=== PATIENT | female | born 1985 | race Two or more races ===

== ENCOUNTER 2016-07-21 08:49 | Emergency (ER) | payer OTHER ==
[~2016-07-21] VITALS: Ht 170.2 cm; Wt 67.0 kg
[2016-07-21 08:51] VITALS: BP 126/74; PULSE 89; RESP 16; O2SAT 100
--- NOTE | 2016-07-21 08:56 | ED.REPORT ---
HPI-Abd Pain F Under 41 Date of Service July 21, 2016 ED Provider: Nursing Notes Stated Complaint: ABDOMINAL PAIN Chief Complaint: Female Abdominal Pain Allergies: Coded Allergies: No Known Allergies (Verified Allergy, Unknown, 01/04/14) No Active Prescriptions or Reported Meds General Time Seen by MD: 08:56 Past Medical History Past Medical History Past Surgical History Reports: Appendectomy, Family History Noncontributory Smoking History Never Smoker Social History Alcohol Use: Denies alcohol use Drug Use: Denies drug use Ambulatory Status Independent Physical Exam Initial Vital Signs Vital Signs (First) Date Time Temp Pulse Resp B/P Pulse Ox O2 Delivery O2 Flow Rate FiO2 07/21/16 08:51 36.6 89 16 126/74 100 Discharge & Departure Referrals: Markus Nieto MD (PCP) Maxx Lao MD July 21, 2016 08:56
[2016-07-21] MEDS ORDERED: 0.9% Sodium Chloride 1,000 ML IV ONE (09:02)
[2016-07-21] MEDS ORDERED: Ondansetron 2 mg/mL 2 mL Inj IVPUSH ONE (09:05)
[2016-07-21] MEDS ORDERED: Pantoprazole 4 mg/mL 10 mL Inj IVPUSH ONE (09:05)
[2016-07-21 09:33] LABS: EOSINOPHILS % (AUTO) 2.2 % (0-5); Mean Corpuscular Hemoglobin 29.5 pg (27.0-35.0); Mean Corpuscular Volume 86.3 fL (81-100); NEUTROPHILS % (AUTO) 53.9 % (40-74); Platelet Count 219 bil/L (150-400)
[2016-07-21 09:56] LABS: Magnesium 1.9 mg/dL (1.6-2.6)
--- NOTE | 2016-07-21 10:40 | ED.REPORT ---
HPI-Abd Pain F Under 40 Date of Service July 21, 2016 ED Provider: Maxx Lao MD Patient is a 31-year-old Albanian-speaking female with past medical history of depression and anxiety presents to [facility] Emergency Department complaining of severe abdominal pain for 1 week. Pain is located in the epigastric area and associated with nausea, decreased appetite, bloating, heartburn, and weakness. She states she has lost 2 pounds during last week. She denies chills, fever, vomiting, diarrhea, recent travels or sick contacts. Patient reports she has been seen for diffuse abdominal pain previously and had negative workup so far. She also states she is under lots of emotional stress and has been depressed for a while. She tried venlafaxine and sertraline for depression but stopped using it due to side effects. Nursing Notes Stated Complaint: ABDOMINAL PAIN Chief Complaint: Female Abdominal Pain Nursing Notes Reviewed: Yes Allergies: Coded Allergies: No Known Allergies (Verified Allergy, Unknown, 01/04/14) No Active Prescriptions or Reported Meds General Time Seen by MD: 09:10 Chief Complaint Abdominal pain (Epigastric area) Hx Obtained From: Patient Arrived By: Walk-in Onset Occurred: 1 week ago Context of Onset: Other (Stress) Symptom Duration: Since onset Progression since Onset: Intermittent Location: : Epigastric Quality: Burning, Cramping Radiation: : Does not radiate Severity: Current: Moderate Associated with: Reports: Anorexia, Nausea Recent Healthcare: Recent doctor visit (LEANA Zamarripa, seen for generalized obdominal pain ) Past Medical History Past Medical History Notes: Depression Headache Past Medical History Past Surgical History Reports: Appendectomy, Family History Noncontributory Smoking History Never Smoker Social History Alcohol Use: Denies alcohol use Drug Use: Denies drug use Other Social History: Ambulatory Status Independent Review of Systems Constitutional: Reports: Fatigue, Malaise, Recent wt loss, Weakness - generalized Respiratory: Denies: Dyspnea on exertion, Hemoptysis, Pleuritic pain, Shortness of breath, Wheezing Cardiovascular: Denies: Chest pain, Edema, Palpitations, Syncope GI: Reports: Abdominal pain, Anorexia, Belching, Nausea, Denies: Bloody/tarry stool, Constipation, Diarrhea, Dysphagia, Hematemesis, Hematochezia, Melena, Vomiting Female: Denies: Dysuria, Flank pain, Pelvic pain, , Vaginal discharge Musculoskeletal: Denies: Back pain, Extremity pain, Extremity swelling, Joint pain, Joint swelling, Lumbar pain, Neck pain, Thoracic pain Physical Exam Initial Vital Signs Vital Signs (First) Date Time Temp Pulse Resp B/P Pulse Ox O2 Delivery O2 Flow Rate FiO2 07/21/16 08:51 36.6 89 16 126/74 100 07/21/16 12:48 Room Air Initial VS: Reviewed, Vital signs normal General/Constitutional: Awake, Alert, No acute distress, Well appearing, Well developed, Well nourished, Cooperative Behavior: Positive: Tearful (worried about her health) Respiratory / Chest: Atraumatic, Breath sounds NL, No respiratory distress, No wheezing, No chest tenderness Cardiovascular: Heart rate NL, No murmurs, Cap refill not delayed, Pulses = bilaterally Abdomen: Atraumatic, Soft, No guarding, No rebound, BS normoactive Tenderness/Guarding/Rebound: Positive: Tender epigastric Back: Atraumatic, Non-tender, No muscle spasm, No CVA tenderness Head / Eyes: Atraumatic, Normocephalic, PERRL, EOMI Mouth: Positive: Mucous membranes dry Skin: No rash, Warm, Dry, Intact, No swelling Interpretation & Diagnostics Lab Results Interpretation Result Diagram: 07/21/16 0930 07/21/16 0930 Test 07/21/16 09:30 White Blood Count 4.2th/mm3 (3.8-10.1) Red Blood Count 4.74mil/mm3 (3.90-5.20) Hemoglobin 14.0g/dL (12.0-15.6) Hematocrit 40.9% (35.0-46.0) Mean Corpuscular Volume 86.3fL (81-100) Mean Corpuscular Hemoglobin 29.5pg (27.0-35.0) Mean Corpuscular Hemoglobin Concent 34.2% (32.0-37.0) Red Cell Distribution Width 12.6% (12.3-15.4) Platelet Count 219bil/L (150-400) Neutrophils (%) (Auto) 53.9% (40-74) Lymphocytes (%) (Auto) 35.9% (14-46) Monocytes (%) (Auto) 7.0% (4-12) Eosinophils (%) (Auto) 2.2% (0-5) Basophils (%) (Auto) 1.0% (0-3) Sodium Level 137mEq/L (134-144) Potassium Level 3.9mEq/L (3.5-5.2) Chloride Level 97mEq/L (97-108) Carbon Dioxide Level 22mmol/L (18-29) Blood Urea Nitrogen 5mg/dL (6-20) Creatinine 0.67mg/dL (0.57-1.00) Estimat Glomerular Filtration Rate 148mL/min (>59) Glucose Level 117mg/dL (60-99) Calcium Level 10.5mg/dL (8.5-10.1) Magnesium Level 1.9mg/dL (1.6-2.6) Total Bilirubin 0.7mg/dL (0.0-1.2) Aspartate Amino Transf (AST/SGOT) 20U/L (0-50) Alanine Aminotransferase (ALT/SGPT) 10U/L (0-32) Alkaline Phosphatase 44U/L (25-150) Total Protein 8.4g/dL (6.4-8.4) Albumin 4.9g/dL (3.4-5.0) Lipase 22U/L (13-60) Lab values outside NL range: no clinical significance. Urinalysis Interpretation Urinalys reviewed and NL Re-Eval/Medical Decision Med Decision/Clinical Course In summary, this is a 31-year-old Albanian speaking female with history of depression and anxiety who comes in with diffuse epigastric pain. Our differential diagnoses includes viral gastroenteritis, peptic ulcer disease, cholecystitis, pancreotitis, etc. CBC, CMP, lipase and UA are unremarkable. Patient is not . Patient is hemodynamically stable. Patient has been seen multiple times by primary care providers for abdominal pain, headaches, anxiety, depression, weakness. All wok up has been negative so far. Patient does report a lot of stress at home and anxiety related to her health. She has three kids and worries about them a lot. She has been on at least two different antidepressants that she stooped taking due to side effects. At this point it is felt safe to discharge patient home. She is instructed to follow up with her PCP, within 1-2 weeks. Counseled Regarding: Diagnosis, Lab results, Need for follow-up, When/why to return to ED Discharge & Departure Shift Change Sign-Out Response to Therapy: Improved Primary Impression: Epigastric abdominal pain of unknown etiology Disposition: Home Discharge Condition All VS Reviewed: Yes Condition: Stable Patient Instructions: Gastritis (ED) Additional Instructions: Thank you for seeking care at the emergency department today. While it is difficult sometimes to establish a definitive diagnosis in the emergency room, our main goal is to exclude life-threatening conditions. Your evaluation was reassuring! We believe you might be experiencing viral gastritis or GERD (gastroesophageal reflux disease). We would recommend you to continue taking omeprazole daily. Avoid drinks and foods that irritate your stomach. Follow up with your PCP if symptoms do not improve. If you would like to transfer care to [facility], you can call at [phone] to make an appointment, address [address] [place] [address]. Please return to emergency department immediately if your symptoms worsen. Thank you for letting us partake in your care today. Referrals: Markus Nieto MD (PCP) EDSupervising Provider for APC: Maxx Lao MD Attending Statment The patient was seen and examined together with Dr. Howell on 07/21/16 and I agree with the history, exam and plan as outlined in the note above. copies to: Markus Nieto MDYeny Nolberto ÁLVAREZ July 21, 2016 10:40 Maxx Lao MD July 24, 2016 16:10
[2016-07-21 12:48] VITALS: BP 112/67; PULSE 67; RESP 18; O2SAT 99
== END 2016-07-21 12:49 | disposition home or self-care (01) ==
LOC: SED 08:49
DX: R10.13 Epigastric pain (principal); R11.0 Nausea; R12 Heartburn; R53.83 Other fatigue; R53.1 Weakness; F32.9 Major depressive disorder, single episode, unspecified
CPT/HCPCS: 36415; 80053; 81002; 81025; 83690; 83735; 85025; 96361; 96374; 96375; 99285; J2405; J7030

== ENCOUNTER 2016-09-11 14:08 | Day surgery (SDC) | payer OTHER ==
[~2016-09-11] VITALS: Ht 167.6 cm; Wt 65.0 kg
[~2016-09-11 14:08] MED LIST: 0.9% Sodium Chloride 1,000 ML IV PRN; FLUN25SP NS; Sodium Chloride LOK Flush 10 mL Syringe IV PRN; fentaNYL-PF 50 mCg/mL 2 mL Inj IVPUSH PRN
[2016-09-11 14:50] VITALS: BP 117/69; PULSE 97; RESP 16; O2SAT 100
--- NOTE | 2016-09-11 16:37 | PCM.ENDEGD ---
EGD Date of Service: Sep 11, 2016 Physician Magan Garcia MD Pre Procedure Diagnosis: Abdominal pain Post Procedure Dx & Findings: Gastritis Procedure Esophagogastroduodenoscopy PROCEDURE IN DETAIL: After proper sedation, Olympus video endoscope was inserted into patient's mouth and esophagus was successfully intubated. Scope introduced esophagus. Esophagus showed normal shiny whitish mucosa consistent with squamous cell component. Z line was intact at 40 cm from the incisors. Scope further advanced to the stomach. The mucosa of the body and the antrum shows some atrophy of the mucosa.. Biopsies obtained to rule out atrophic gastritis. Cardia fundus body antrum pylorus were all visualized. Retroflexion was done. Stomach was easily inflated and deflatable using air. Scope further advanced to the distal duodenum. Duodenum revealed normal villous structures with normal appearing folds without any mass ulcer erosion. 5 biopsies obtained. Impression Atrophic gastropathy Recommendation Await biopsies Presedation Assessment Risks and Benefits Informed consent was obtained from the patient after all risks and benefits including but not limited to drug reaction, infection, pain, bleeding, perforation, as well as alternatives were discussed. Patient monitoring Continuous pulse oximetry, cardiac monitoring, blood pressure monitoring, IV access, and oxygen at 2L per nasal cannula. Periprocedural Fentanyl: Fentanyl 200mcg Incrementally Midazolam: Midazolam 9mg Incrementally Complications There were no periprocedural complications identified. Post Procedure Plan Post Procedure Recommendations 1. Restrict activities today. 2. Resume normal activities in the morning. 3. Resume medications. 4. GERD behavioral modification: - Avoid fatty, acidic, spicy, large meals - Do not lie down after meals - Do not eat or drink anything for at least 2 1/2 hours before going to bed at night - Discontinue tobacco and alcohol - Decrease or avoid caffeine - Avoid chocolate and mints - Decrease weight - Avoid aspirin and non steroidal anti-inflammatory agents (NSAID) such as Aleve, Advil, Mobic, Naproxen, Ibuprofen, etc 5. Add proton pump inhibitor. Take 30 minutes before 1st meal of the day. 6. Patient informed of normal post procedure side effects as bloating, drowsiness, blood streaking in the stool 7. If gastric biopsy reveal H.pylori, continue with appropriate treatment 8. If small bowel biopsy reveals celiac, continue with appropriate treatment 9. Please don't hesitate to call me with any questions Magan Garcia MD Sep 11, 2016 16:37
[2016-09-11 16:38] VITALS: BP 123/72; PULSE 88; RESP 16; O2SAT 100
--- NOTE | 2016-09-11 16:39 | PCM.ENDCOL ---
Colonoscopy Date of Service: Sep 11, 2016 Physician Magan Garcia MD Pre Procedure Diagnosis: Blood in the stools abdominal pain Post Procedure Dx & Findings: Hemorrhoids Procedure Colonoscopy PROCEDURE IN DETAIL: Prep adequate Withdrawal time 18 minutes After unremarkable rectal examination the Olympus video colonoscope was inserted patient's anal canal and was advanced to cecum. Landmarks were identified including the ileocecal valve and appendiceal orifice. Scope further vents the terminal ileum. Advanced 10 cm. Visualized terminal ileum showed normal villous structures without any ulcer mass erosions. Scope was withdrawn systematically. Visualized colonic mucosa showed healthy shiny mucosa with normal healthy-appearing vasculature. In the colon, polyp. They are both about 5 mm in size. These were removed using cold snare. In the sigmoid colon, there was another 5 mm completely using cold snare. In the rectum, there were 2 polyps. There were both 1 mm in size which was removed completely cold forceps. In the rectum retroflexion was done which showed hemorrhoids. Anal canal was inspected carefully on the way out and hemorrhoids noted. Impression Polyps 5 status post complete removal Hemorrhoids Recommendation Repeat colonoscopy 3 years Follow-up in the GI clinic with the physician's training and development assistant. Presedation Assessment Risks and Benefits Informed consent was obtained from the patient after all risks and benefits including but not limited to drug reaction, infection, pain, bleeding, perforation, as well as alternatives were discussed. Patient monitoring Continuous pulse oximetry, cardiac monitoring, blood pressure monitoring, IV access, and oxygen at 2L per nasal cannula. Complications There were no periprocedural complications identified. Post Procedure Plan Post Procedure Recommendations 1. Restrict activities today. 2. Resume normal activities in the morning. 3. Resume medications. 4. Patient informed of normal post procedure side effects as bloating, drowsiness, blood streaking in the stool. 5. average risk CRCS. If colon polyps come back as: -Hyperplastic- can repeat colonoscopy in 10 years -Tubular adenoma- repeat colonoscopy in 5 years -Tubulovillous/villous adenoma- repeat colonoscopy in 3 years -If any dysplasia- return to clinic as soon as possible 6. Please don't hesitate to call me with any questions. Magan Garcia MD Sep 11, 2016 16:39
[2016-09-11 16:48] VITALS: BP 128/69; PULSE 86; RESP 16; O2SAT 100
[2016-09-11 16:58] VITALS: BP_SYST 116; BP_SYST 166; BP_DIAS 68; PULSE 88; RESP 16; O2SAT 100
--- NOTE | 2016-09-13 16:53 | PATH ---
SURGICAL PATHOLOGY Attending Physician:Magan Garcia M.D. CASE STATUS: Signed Out PATIENT NAME: EVELYNE MANN PID: [id number] : 1985 DATE COLLECTED:09/11/2016 00:00 SPECIMEN: 1: Duodenum, Biopsy 2: Gastric, Biopsy 3: Colon, Polyp 4: Colon, Polyp 5: Rectum, Biopsy CLINICAL HISTORY: EPIGASTRIC, ABDOMINAL PAIN 1). DUODENAL BIOPSY, RULE OUT CELIAC DISEASE 2). GASTRIC BIOPSY 3). DESCENDING COLON POLYPS X2 4). SIGMOID COLON POLYP 5). RECTAL POLYPS X2 FINAL DIAGNOSIS: 1.DUODENAL BIOPSY: NORMAL-APPEARING SMALL BOWEL MUCOSA. Normal delicate mucosal villi present. Negative for significant inflammation, dysplasia and malignancy. 2.GASTRIC BIOPSY: MUCOSAL HYPEREMIA WITHOUT ASSOCIATED SIGNIFICANT INFLAMMATION INVOLVING FUNDIC MUCOSA. Negative for evidence of Helicobacter on H&E stain. Negative for intestinal metaplasia. Negative for dysplasia and malignancy. 3.DESCENDING COLON POLYPS: HYPERPLASTIC POLYP INVOLVING ALL BIOPSY FRAGMENTS. 4.SIGMOID COLON POLYP: HYPERPLASTIC POLYP INVOLVING MULTIPLE BIOPSY FRAGMENTS. 5.RECTAL POLYP: POLYPOID-SHAPED FRAGMENT OF COLON MUCOSA WITH FOCAL PROMINENT LYMPHOID AGGREGATE. Negative for dysplasia and malignancy. ICD10 K63.5 GROSS DESCRIPTION: 1. Received in formalin, labeled with the patient's name and "duodenal biopsy" are three fragments of su soft tissue ranging from 0.1 x 0.1 x 0.1 cm to 0.3 x 0.2 x 0.2 cm. All fragments are totally submitted in cassette 1A. 2. Received in formalin, labeled with the patient's name and "gastric biopsy" are two fragments of su soft tissue ranging from 0.2 x 0.2 x 0.1 cm to 0.3 x 0.2 x 0.2 cm. All fragments are totally submitted in cassette 2A. 3. Received in formalin, labeled with the patient's name and "descending colon polyp" are multiple fragments of su soft tissue measuring 0.1 x 0.1 x 0.1 cm to 0.4 x 0.3 x 0.2 cm. The fragments are totally submitted in cassette 3A. 4.. Received in formalin, labeled with the patient's name and "sigmoid polyp" are multiple fragments of su soft tissue ranging from 0.2 x 0.1 x 0.1 cm to 0.3 x 0.2 x 0.2 cm. The fragments are totally submitted in cassette 4A. 5. Received in formalin, labeled with the patient's name and "rectal polyp" is one fragment of su soft tissue measuring 0.3 x 0.2 x 0.2 cm. The fragment is totally submitted in cassette 5A. ([id number]) MICRO DESCRIPTION: See diagnosis. ICD-9 CODES: CPT CODES: 1: 87047 2: 22190 3: 89180 4: 71012 5: 14652 Electronically Signed Out Tony Case MD [facility] [address], [place] [address] Technical component performed at [facility], [address], [place], [address]
== END 2016-09-11 23:59 | disposition home or self-care (01) ==
LOC: END 14:08
PROVIDERS: ATTEND Internal Medicine
DX: K63.5 Polyp of colon (principal); K62.1 Rectal polyp; K64.8 Other hemorrhoids; K31.9 Disease of stomach and duodenum, unspecified; F41.8 Other specified anxiety disorders
CPT/HCPCS: 43239; 45380; 45385; 99153; G0500; J2250; J3010; J7030